=== PATIENT | male | born 1985 | race Caucasian/White ===

== ENCOUNTER 2018-01-21 23:38 | Emergency (ER) | payer BC, MEDICAID ==
[2018-01-22] MEDS: KETOROLAC 60 MG INJ IM (01:25)
== END 2018-01-22 01:32 | disposition home or self-care (01) ==
LOC: FTE 23:38
DX: K08.89 Other specified disorders of teeth and supporting structures (principal)
CPT/HCPCS: 96372; 99284-25

== ENCOUNTER 2018-10-14 22:55 | Emergency (ER) | payer BC ==
[2018-10-14] MEDS: DEXAMETHASONE 10 MG/ML 1 ML INJ IM (23:26)
[2018-10-14] MEDS: ALBUTEROL 0.083% (NEB) 2.5 MG/3 ML AMP HHN (23:29)
== END 2018-10-15 00:17 | disposition home or self-care (01) ==
LOC: FTE 10-15 00:17
DX: J06.9 Acute upper respiratory infection, unspecified (principal)
CPT/HCPCS: 94664; 96372; 99284-25

== ENCOUNTER 2018-11-03 19:27 | Emergency (ER) | payer SELFPAY, BC | END 2018-11-03 20:56 | disposition home or self-care (01) | LOC: FTE 19:27 | DX: L03.213 Periorbital cellulitis (principal) | CPT/HCPCS: 99283 ==